=== PATIENT | female | born 1990 | race Two or more races ===

== ENCOUNTER 2017-03-31 09:19 | Emergency (ER) | payer BC, OTHER ==
[2017-03-31] MEDS ORDERED: NORMAL SALINE 1000 ML 1,000 ML IV ONE (09:48)
--- NOTE | 2017-03-31 09:50 | ER Document Report ---
ED Medical Screen (RME) - General Chief Complaint: Abdominal Pain Stated Complaint: ABDOMINAL PAIN Time Seen by Provider: 03/31/17 09:48 Notes: Patient states that she has a positive home test. Starting last night she began have lower abdominal cramping and bleeding with clots. TRAVEL OUTSIDE OF THE [place] IN LAST 30 DAYS: No - Related Data Allergies/Adverse Reactions: No Known Allergies Allergy (Verified 03/14/15 20:23) Physical Exam - Vital signs Vitals: Temp Pulse Resp BP Pulse Ox 97.9 F 99 20 117/65 99 03/31/17 09:23 03/31/17 09:23 03/31/17 09:23 03/31/17 09:23 03/31/17 09:23 Course - Vital Signs Vital signs: Temp Pulse Resp BP Pulse Ox 97.9 F 99 20 117/65 99 03/31/17 09:23 03/31/17 09:23 03/31/17 09:23 03/31/17 09:23 03/31/17 09:23
[2017-03-31 10:17] LABS: ABSOLUTE EOSINOPHILS # (AUTO) 0.3 10^3/uL (0.0-0.6); ABSOLUTE LYMPHOCYTES (AUTO) 1.8 10^3/uL (0.5-4.7); ABSOLUTE MONOCYTES (AUTO) 0.4 10^3/uL (0.1-1.4); ABSOLUTE NEUT (AUTO) 4.6 10^3/uL (1.7-8.2); BASOPHILS % (AUTO) 0.7 % (0-2); EOSINOPHILS % (AUTO) 3.7 % (0-6); HEMATOCRIT 32.4 % (36.0-47.0); HEMOGLOBIN 10.7 g/dL (12.0-15.5); LYMPHOCYTES % (AUTO) 24.9 % (13-45); MEAN CORPUSCULAR HEMOGLOBIN 25.9 pg (27.0-33.4); MEAN CORPUSCULAR VOLUME 78 fl (80-97); MONOCYTES % (AUTO) 5.5 % (3-13); PLATELET COUNT 189 10^3/uL (150-450); RED BLOOD COUNT 4.14 10^6/uL (3.72-5.28); SEGMENTED NEUTROPHILS % (AUTO) 65.2 % (42-78); TOTAL CELLS COUNTED % (AUTO) 100 %; WHITE BLOOD COUNT 7.1 10^3/uL (4.0-10.5)
--- NOTE | 2017-03-31 10:26 | ER Document Report ---
ED GI/ - General Chief Complaint: Abdominal Pain Stated Complaint: ABDOMINAL PAIN Time Seen by Provider: 03/31/17 09:48 Mode of Arrival: Ambulatory Information source: Patient - 26-year-old female with last menstrual period January 31 presents with vaginal bleeding and abdominal cramping. Pain is in her lower abdomen diffusely radiating to her back. She notes she was "leaking blood" last night. She had had a little pain for a few days prior but symptoms seem to worsen significantly last night. Denies vomiting. No diarrhea but notes some increased pain with defecation. She has used 1 pad today at this point did note a small amount of clots last night. No dysuria. Denies notable hematuria. No otherwise bleeding. There is no anticoagulant use. No fever cough cold symptoms rhinorrhea. TRAVEL OUTSIDE OF THE [place] IN LAST 30 DAYS: No - Related Data Allergies/Adverse Reactions: No Known Allergies Allergy (Verified 03/14/15 20:23) Past Medical History - Social History Smoking Status: Current Some Day Smoker - Stopped smoking when she found out she was possibly . Chew tobacco use (# tins/day): No Frequency of alcohol use: None Drug Abuse: None Family History: Reviewed & Not Pertinent Patient has suicidal ideation: No Patient has homicidal ideation: No Renal/ Medical History: Denies: Hx Peritoneal Dialysis Review of Systems - Review of Systems -: Yes All other systems reviewed and negative Physical Exam - Vital signs Vitals: Temp Pulse Resp BP Pulse Ox 97.9 F 99 20 117/65 99 03/31/17 09:23 03/31/17 09:23 03/31/17 09:23 03/31/17 09:23 03/31/17 09:23 Interpretation: Normal - Notes Notes: GENERAL: VS as per nursing doc. Well-appearing, well-nourished and in no acute distress. HEAD: Atraumatic, normocephalic. EYES: Pupils equal round and reactive to light, extraocular movements intact, sclera anicteric, no conjunctival injection or discharge. ENT: Nares patent, oropharynx clear without exudates, moist mucous membranes. NECK: Normal range of motion, supple without lymphadenopathy. LUNGS: Breath sounds clear to auscultation bilaterally and equal. No wheezes rales or rhonchi. HEART: Regular rate and rhythm without murmurs. ABDOMEN: Soft, very mild suprapubic tenderness, normoactive bowel sounds. No guarding, no rebound. No masses appreciated. No [place] sign. BACK: No CVA tenderness. EXTREMITIES: Normal range of motion, no calf tenderness, no edema. NEUROLOGICAL: Cranial nerves grossly intact. Normal speech. Normal sensory and motor exams. No gross cerebellar abnormalities. PSYCH: Normal mood, normal affect. SKIN: Warm, dry, normal turgor, no lesions noted. Course - Re-evaluation Re-evalutation: 03/31/17 12:[address] Tari Miramontes from [facility] [facility] and she will see the patient this week for follow-up. Findings were discussed with the patient as well as warning signs. She will return if she is worsening otherwise. We will give her some pain medication as the cramping seems somewhat worse now that appears to be completing a spontaneous at this point. Pelvic rest was discussed with patient as well. - Vital Signs Vital signs: Temp Pulse Resp BP Pulse Ox 97.9 F 99 20 117/65 99 03/31/17 09:23 03/31/17 09:23 03/31/17 09:23 03/31/17 09:23 03/31/17 09:23 - Laboratory Result Diagrams: 03/31/17 10:01 03/31/17 10:01 Laboratory results interpreted by me: 03/31/17 03/31/17 03/31/17 10:01 10:01 10:51 Hgb 10.7 L Hct 32.4 L MCV 78 L MCH 25.9 L RDW 16.0 H BUN 6 L Glucose 66 L Beta HCG, Quant 08063.00 H Urine Blood MODERATE H Urine Urobilinogen 2.0 H - Diagnostic Test Radiology reviewed: Reports reviewed - Irregular shaped gestational sac is Discharge - Discharge Clinical Impression: Threatened in first trimester Condition: Good Disposition: HOME, SELF-CARE Instructions: Threatened Miscarriage ([facility]) Additional Instructions: Expect some bleeding and cramping. You may use ibuprofen or the prescribed pain medication. Please return for worsening or concern such as soaking multiple pads an hour, developing dizziness, fever, or other change. Call today to arrange follow-up at the number provided. Pelvic rest which means no tampons, intercourse or anything in the vagina until follow-up. Prescriptions: Hydrocodone/Acetaminophen [[place] 5-325 mg Tablet] 1 tab PO Q4HP PRN #10 tablet PRN Reason: For Pain Forms: Parent Work Note Referrals: TARI MIRAMONTES MD [ACTIVE STAFF] - (Call today to arrange follow-up for this week, preferably in the next 1-2 days.)
[2017-03-31 10:32] LABS: ALANINE AMINOTRANSFERASE 26 U/L (9-52); ALBUMIN 4.4 g/dL (3.5-5.0); ALKALINE PHOSPHATASE 39 U/L (38-126); ANION GAP 12 (5-19); ASPARTATE AMINO TRANSFERASE 15 U/L (14-36); BILIRUBIN,DIRECT 0.2 mg/dL (0.0-0.4); BILIRUBIN,TOTAL 0.5 mg/dL (0.2-1.3); BLOOD UREA NITROGEN 6 mg/dL (7-20); CALCIUM 9.9 mg/dL (8.4-10.2); CARBON DIOXIDE 27 mmol/L (22-30); CHLORIDE 105 mmol/L (98-107); GLUCOSE 66 mg/dL (75-110); POTASSIUM 3.9 mmol/L (3.6-5.0); SODIUM 144.2 mmol/L (137-145); TOTAL PROTEIN 7.3 g/dL (6.3-8.2)
[2017-03-31 11:29] LABS: APPEARANCE,URINE CLEAR; BILIRUBIN,URINE NEGATIVE (NEGATIVE); COLOR,URINE YELLOW; GLUCOSE, URINE NEGATIVE (NEGATIVE); KETONES,URINE NEGATIVE (NEGATIVE); LEUKOCYTE ESTERASE,URINE NEGATIVE (NEGATIVE); NITRITE,URINE NEGATIVE (NEGATIVE); PROTEIN,URINE NEGATIVE (NEGATIVE); URINE SPECIFIC GRAVITY 1.008
--- NOTE | 2017-03-31 11:55 | RADIOLOGY REPORT (SQ) ---
EXAM DESCRIPTION: U/S OB TRANSVAGINAL W/O DOP COMPLETED DATE/TIME: 03/31/2017 11:43 am REASON FOR STUDY: preg/bleeding COMPARISON: None. TECHNIQUE: Transvaginal static and realtime grayscale images acquired of the pelvis. Additional caleb cted spectral and color Doppler images recorded. All images stored on PACs. bHC,619 LIMITATIONS: None. FINDINGS: UTERUS: No masses. No anomalies. GESTATIONAL SAC: Yes. Irregular-shaped. YOLK SAC: Possible yolk sac. POLE: No. RIGHT ADNEXA: No pole with corpus luteal cyst. Mild free fluid. No adnexal masses. LEFT ADNEXA: Normal ovary with normal vascular flow. No adnexal free fluid. No adnexal masses. FREE FLUID: None. OTHER: No other significant finding. IMPRESSION: INTRAUTERINE GESTATIONAL SAC WHICH IS SOMEWHAT IRREGULAR WITH POSSIBLE YOLK SAC. GIVEN BETA HCG LEVEL OF 13,619 FINDINGS ARE CONCERNING FOR FAILED INTRAUTERINE . RECOMMEND FOLLOW -UP BETA HCG LEVEL AND CONSIDER REPEAT ULTRASOUND IN 5 TO 7 DAYS CLINICALLY INDICATED. Trimester of : First - 0 to 13 weeks. TECHNICAL DOCUMENTATION: JOB ID: [id number] [employer]- All Rights Reserved
[2017-03-31] MEDS ORDERED: ONDANSETRON 4 MG TAB.RAPDIS PO ONE (12:39)
[2017-03-31] MEDS ORDERED: HYDROCODONE/ACETAMINOPHEN 10-325 MG TABLET PO ONE (12:39)
[2017-03-31 13:03] VITALS: BP 129/75
== END 2017-03-31 13:02 | disposition home or self-care (01) ==
LOC: ER 09:19
DX: O20.0 Threatened abortion (principal); Z3A.08 8 weeks gestation of pregnancy; Z87.891 Personal history of nicotine dependence
CPT/HCPCS: 99284; 96360; 86900; 86901; 36415; 84702; 85025; 80053; 81001; 76817; S0119; J7030

== ENCOUNTER → 2019-08-15 | Outpatient (CLI) | payer SELFPAY ==
--- NOTE | 2019-08-15 12:40 | RADIOLOGY REPORT (SQ) ---
EXAM DESCRIPTION: CERV SP 4 OR 5 VIEWS IMAGES COMPLETED DATE/TIME: 08/15/2019 12:24 pm REASON FOR STUDY: PAIN W10.8XXA FALL (ON) (FROM) OTHER STAIRS AND STEPS, INITIAL EN COMPARISON: None. NUMBER OF VIEWS: Five views. TECHNIQUE: AP, lateral, obliques, swimmer's and odontoid radiographic images acquired of the cervica l spine. LIMITATIONS: On lateral view the cervical spine is down to the level. Swimmer's view shows normal a lignment of the, C7, and T1 vertebral body. FINDINGS: MINERALIZATION: Normal. ALIGNMENT: Anatomic. VERTEBRAE: Vertebral bodies of normal height. DISCS: No significant osteophytes or sclerosis. Disc height maintained. FORAMINA: No osteophytes or foraminal narrowing. LATERAL AND POSTERIOR ELEMENTS: Facets, lateral masses and spinous processes without significant find ings. HARDWARE: None in the spine. SOFT TISSUES: No masses or calcifications. Lung apices clear. OTHER: No other significant finding. IMPRESSION: Limited negative study TECHNICAL DOCUMENTATION: JOB ID: [id number] 2010 [employer]- All Rights Reserved Reading location - IP/workstation name: [email or web address]
--- NOTE | 2019-08-15 12:41 | RADIOLOGY REPORT (SQ) ---
EXAM DESCRIPTION: RIBS RIGHT W/PA CHEST IMAGES COMPLETED DATE/TIME: 08/15/2019 12:24 pm REASON FOR STUDY: PAIN W10.8XXA FALL (ON) (FROM) OTHER STAIRS AND STEPS, INITIAL EN COMPARISON: None. TECHNIQUE: Frontal view of the chest and additional views of the right ribs acquired. NUMBER OF VIEWS: PA chest, right rib detail views LIMITATIONS: None. FINDINGS: FRONTAL CXR: No pneumothorax. No pleural effusion. No atelectasis or infiltrates. Cardi ac silhouette size, tristin unremarkable. RIBS: No displaced rib fractures. No lytic or blastic bony lesions. OTHER: No other significant finding. IMPRESSION: NO PNEUMOTHORAX. NO DISPLACED RIB FRACTURES. COMMENT: SITE OF TRAUMA/COMPLAINT MARKED/STAMP COMPLETED: No TECHNICAL DOCUMENTATION: JOB ID: [id number] 2010 [employer]- All Rights Reserved Reading location - IP/workstation name: [email or web address]
--- NOTE | 2019-08-15 12:42 | RADIOLOGY REPORT (SQ) ---
EXAM DESCRIPTION: ELBOW RIGHT OVER 2 VIEWS IMAGES COMPLETED DATE/TIME: 08/15/2019 12:24 pm REASON FOR STUDY: PAIN W10.8XXA FALL (ON) (FROM) OTHER STAIRS AND STEPS, INITIAL EN COMPARISON: None. NUMBER OF VIEWS: Four views. TECHNIQUE: AP, lateral, and both oblique radiographic images acquired of the right elbow. LIMITATIONS: None. FINDINGS: MINERALIZATION: Normal. BONES: No acute fracture or dislocation. No worrisome bone lesions. JOINT: No effusion. SOFT TISSUES: No soft tissue swelling. No foreign body. OTHER: No other significant finding. IMPRESSION: NEGATIVE STUDY OF THE RIGHT ELBOW. NO RADIOGRAPHIC EVIDENCE OF ACUTE INJURY. TECHNICAL DOCUMENTATION: JOB ID: [id number] 2010 [employer]- All Rights Reserved Reading location - IP/workstation name: [email or web address]
== END ==
LOC: RAD 11:50
PROVIDERS: ATTEND Nurse Practitioner Family
DX: M25.521 Pain in right elbow (principal); M54.2 Cervicalgia; R07.89 Other chest pain; W10.8XXA Fall (on) (from) other stairs and steps, initial encounter
CPT/HCPCS: 72050